=== PATIENT | male | born 1945 ===

== ENCOUNTER 2018-04-22 16:03 | Inpatient (IN) | payer MEDICARE, OTHER ==
--- NOTE | 2018-04-22 16:47 | C.PDOC ---
History Of Present Illness 72 y/o male with PMHx of HTN and diabetes presents to the ER, referred by PMD for evaluation of worsening chest pain and dyspnea on exertion. Patient complains of difficulty breathing that has gradually worsened over the last year , especially with exertion. He notes he occasionally has chest pain, but is asymptomatic at this time. Patient also reports gradually worsening pedal edema over the past 2-3 months, left greater than right. He complains of pain down the left lower leg/calf, ongoing for years, and notes the leg pain has not changed since the swelling began. Otherwise patient denies any dizziness, headache, nausea, vomiting, palpitations, weakness, or other associated symptoms. Denies taking daily blood thinners. Time Seen by Provider: 04/22/18 16:44 Chief Complaint (Nursing): Chest Pain History Per: Patient History/Exam Limitations: no limitations Onset/Duration Of Symptoms: Gradual Current Symptoms Are (Timing): Still Present Past Medical History Reviewed: Historical Data, Nursing Documentation, Vital Signs Vital Signs: Last Vital Signs Temp 97.7 F 04/24/18 04:00 Pulse 67 04/24/18 04:00 Resp 20 04/24/18 04:00 BP 147/82 04/24/18 11:24 Pulse Ox 100 04/24/18 04:00 - Medical History PMH: Back Problems (spinal stenosis), Diabetes, HTN, Hypercholesterolemia Denies: Chronic Kidney Disease Surgical History: Endoscopy - [facility] Procedures CLOSED ENDOSCOPIC BIOPSY OF LARGE INTESTINE (09/07/14) Family History: States: No Known Family Hx - Social History Hx Alcohol Use: No Hx Substance Use: No Review Of Systems Except As Marked, All Systems Reviewed And Found Negative. Constitutional: Negative for: Weakness Cardiovascular: Positive for: Chest Pain. Negative for: Palpitations Respiratory: Positive for: Shortness of Breath, SOB with Excertion Gastrointestinal: Negative for: Nausea, Vomiting Musculoskeletal: Positive for: Leg Pain, Other (bilateral feet swelling) Neurological: Negative for: Headache, Dizziness Physical Exam - Physical Exam Appears: Non-toxic, No Acute Distress Skin: Normal Color, Warm, No Rash Head: Atraumatic, Normacephalic Eye(s): bilateral: Normal Inspection, PERRL, EOMI Nose: Normal Oral Mucosa: Moist Neck: Normal ROM, Supple Chest: Symmetrical, No Deformity Cardiovascular: Rhythm Regular (and rate) Respiratory: Normal Breath Sounds, No Accessory Muscle Use, No Rales, No Rhonchi , No Wheezing, Other (NARD) Gastrointestinal/Abdominal: Soft, No Tenderness, No Distention Back: Normal Inspection Extremity: Normal ROM, No Calf Tenderness (or calf swelling), Capillary Refill ( less than 2 sec), No Deformity, Swelling (Pitting edema to bilateral feet, left > right) Pulses: Left Dorsalis Pedis: Normal, Right Dorsalis Pedis: Normal Neurological/Psych: Oriented x3, Normal Speech, Normal Cranial Nerves, Other ( No focal deficits) ED Course And Treatment - Laboratory Results Result Diagrams: 04/24/18 06:38 04/24/18 06:38 ECG: Interpreted By Me ECG Rhythm: Sinus Rhythm ECG Interpretation: Abnormal Interpretation Of ECG: TWI I, II, AVL, V5-6 Rate From EC O2 Sat by Pulse Oximetry: 98 Pulse Ox Interpretation: Normal - Other Rad CHEST X-RAY X-Ray: Viewed By Me, Read By Radiologist Interpretation: Accession No. : [id number]. Patient Name / ID : GAJRAJ ALEJO / [id number]. Exam Date : 04/22/2018 16:57:05 ( Approved ). Study Comment : Sex / Age : M / 72Y. Creator : Wilma Evans. Dictator : Nathaniel Huizar MD. Amusement Park Entertainer : Gas Turbine Assembler : Nathaniel Huizar MD. Approver2 : Report Date : 04/22/2018 17:10:43. My Comment : . Date of service: 04/22/2018. PROCEDURE: CHEST RADIOGRAPH, 1 VIEW. HISTORY: SOB. COMPARISON: Chest radiograph dated 03/31/2018. FINDINGS: LUNGS: Clear. PLEURA: No pneumothorax or pleural fluid seen. CARDIOVASCULAR: Atherosclerotic aortic calcifications. Cardiomediastinal silhouette within normal limits. OSSEOUS STRUCTURES: Unchanged. VISUALIZED UPPER ABDOMEN: Normal. OTHER FINDINGS: None. IMPRESSION: No active disease. Progress - Re-Evaluation Re-evaluation Note: 04/22/18 16:46 D/W DR CHANDLER. STATES EKG TWI ARE OLD. LOVENOX, ASA, WILL CONSULT. 04/22/18 17:12 D/W DR VIVAR WILL ADMIT. LABS PENDING. - Data Reviewed Data Reviewed: Lab, Diagnostic imaging, EKG, Old records Medical Decision Making Medical Decision Making: Initial Impression: Dyspnea on exertion Time: 16:45 Initial Plan: --EKG --Blood work --Chest x-ray --Aspirin 324 mg PO --Lasix 20 mg IVP --Lovenox 70 mg SC Case discussed with patient's primary doctor, Dr. Hilton, who accepts patient for admission. Disposition Counseled Patient/Family Regarding: Studies Performed, Diagnosis - Disposition Disposition: HOSPITALIZED Disposition Time: 17:05 Condition: STABLE - POA Present On Arrival: None - Clinical Impression Clinical Impression: Aortic stenosis, severe, Dyspnea on exertion, Diastolic heart failure - Scribe Statement The provider has reviewed the documentation as recorded by the Siobhan Salmon Provider Attestation: All medical record entries made by the Wilmanibnancy were at my direction and personally dictated by me. I have reviewed the chart and agree that the record accurately reflects my personal performance of the history, physical exam, medical decision making, and the department course for this patient. I have also personally directed, reviewed, and agree with the discharge instructions and disposition. Decision To Admit - Pt Status Changed To: Hospital Disposition Of: Inpatient - Admit Certification Admit to Inpatient:: After my assessment, the patient will require hospitalization for at least two midnights. This is because of the severity of symptoms shown, intensity of services needed, and/or the medical risk in this patient being treated as an outpatient. - InPatient: Physician Admission Certification: I certify that this patient requires 2 or more midnights of care for the following reason:: SEE NOTE - . Bed Request Type: Telemetry Admitting Physician: Edu Hilton Patient Diagnosis: Aortic stenosis, severe, Dyspnea on exertion, Diastolic heart failure
[2018-04-22] MEDS ORDERED: Enoxaparin 40 mg Syringe SC STA (16:58)
[2018-04-22 17:00] LABS: BASO % 0.6 % (0.0-2.0); EOS # 0.1 K/uL (0.0-0.7); EOS % 1.3 % (0.0-4.0); HEMOGLOBIN 13.1 g/dL (12.0-18.0); LYMPH # 1.3 K/uL (1.0-4.3); LYMPH % 26.1 % (20.0-40.0); MEAN CELL VOLUME 87.9 fL (80.0-94.0); MEAN CORPUSCULAR HEMOGLOBIN 29.7 pg (27.0-31.0); MEAN CORPUSCULAR HGB CONC 33.8 g/dL (33.0-37.0); MEAN PLATELET VOLUME 6.5 fL (7.2-11.7); MONO # 0.7 K/uL (0.0-0.8); MONO % 13.3 % (0.0-10.0); NEUT # 2.9 K/uL (1.8-7.0); NEUT % 58.7 % (50.0-75.0); RBC 4.4 Mil/uL (4.40-5.90); RED CELL DISTRIBUTION WIDTH 13.7 % (11.5-14.5)
[2018-04-22 17:09] LABS: INR 1.1; PROTHROMBIN TIME 11.5 SECONDS (9.7-12.2)
[2018-04-22 17:11] LABS: ALB/GLOB RATIO 1.7 (1.0-2.1); ALBUMIN 4.3 g/dL (3.5-5.0); ALT/SGPT 23 U/L (21-72); AST/SGOT 15 U/L (17-59); BLOOD UREA NITROGEN 13 mg/dL (9-20); CALCIUM 8.4 mg/dl (8.6-10.4); GFR AFRICAN-AMERICAN > 60; GFR NON-AFRICAN AMERICAN > 60
[2018-04-22 17:23] LABS: B-TYPE NATRIURETIC PEPTIDE 1310 pg/mL (0-900)
[2018-04-22] MEDS ORDERED: Enoxaparin 80 mg Syringe ONE (17:23)
--- NOTE | 2018-04-22 17:26 | RAD ---
Date of service: 04/22/2018 PROCEDURE: CHEST RADIOGRAPH, 1 VIEW HISTORY: SOB COMPARISON: Chest radiograph dated 03/31/2018. FINDINGS: LUNGS: Clear. PLEURA: No pneumothorax or pleural fluid seen. CARDIOVASCULAR: Atherosclerotic aortic calcifications. Cardiomediastinal silhouette within normal limits. OSSEOUS STRUCTURES: Unchanged. VISUALIZED UPPER ABDOMEN: Normal. OTHER FINDINGS: None. IMPRESSION: No active disease.
--- NOTE | 2018-04-22 21:41 | CP.PCM.HP ---
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 Patient also started having chest discomfort, shortness of breath, bilateral leg swelling worsening, associated with a severe systolic murmur, patient was immediately sent to the emergency room for worsening aortic stenosis and associated systemic symptoms. Patient also has a mild chest discomfort. He denies any nausea vomiting, no sweating noted Past medical history: Diabetes hypertension and hypercholesteremia spinal stenosis, diabetic neuropathy Allergy: No known drug allergy Surgical history none Allergy: No known drug allergy Personal history: Nonsmoker nonalcoholic. Patient currently lives with family members, functional capacity limited because of the ongoing leg pain Review of system: Noted from the chart. Mild chest discomfort, shortness of breath, leg swelling noted bilaterally. Walking difficulty noted, with the pain in the left leg. On examination: Vital signs stable. Patient has a severe systolic murmur. Radiating to the carotids. Regular heart sound. Bilateral good air entry noted. Abdomen soft. Pedal edema bilaterally noted Patient's labs reviewed in Nonspecific. Chest x-ray showing no evidence of any acute pulmonary infiltrate artery edema noted Assessment and recommendation: 78-year-old male with a history of diabetes hypertension and hypercholesteremia and severe spinal stenosis, aortic stenosis severe, admitted to the hospital with acute chest discomfort, decompensated mild systolic heart failure likely. In the setting of severe aortic stenosis patient is at high risk for cardiac arrest. We'll admit the patient. Diuretics. Cardiogenic on admission. Echo cardigan. Cardiac enzymes monitoring. Patient possibly need transfer aortic valve replacement. Patient in the past was refusing to surgery. Currently he is agreeing. Glucose control. DVT and GI prophylaxis, will follow-up the patient Present on Admission - Present on Admission Any Indicators Present on Admission: No History of DVT/PE: No History of Uncontrolled Diabetes: No Urinary Catheter: No Decubitus Ulcer Present: No Past Patient History - Past Medical History & Family History Past Medical History?: Yes - Past Social History Smoking Status: Never Smoked - CARDIAC Hx Hypercholesterolemia: Yes Hx Hypertension: Yes - PULMONARY Hx Respiratory Disorders: No - NEUROLOGICAL Hx Neurological Disorder: No - HEENT Hx HEENT Problems: Yes Hx Glaucoma: Yes - RENAL Hx Chronic Kidney Disease: No - ENDOCRINE/METABOLIC Hx Endocrine Disorders: Yes Hx Diabetes Mellitus Type 2: Yes - HEMATOLOGICAL/ONCOLOGICAL Hx Blood Disorders: No - INTEGUMENTARY Hx Dermatological Problems: No - MUSCULOSKELETAL/RHEUMATOLOGICAL Hx Musculoskeletal Disorders: Yes Hx Spinal Stenosis: Yes - GASTROINTESTINAL Hx Gastrointestinal Disorders: Yes Hx Colitis: Yes - GENITOURINARY/GYNECOLOGICAL Hx Genitourinary Disorders: No - PSYCHIATRIC Hx Substance Use: No - SURGICAL HISTORY Hx Surgeries: Yes - ANESTHESIA Hx Anesthesia: Yes Hx Anesthesia Reactions: No Hx Malignant Hyperthermia: No Meds Allergies/Adverse Reactions: Allergies Allergy/AdvReac Type Severity Reaction Status Date / Time No Known Allergies Allergy Verified 09/07/14 10:17 Results - Vital Signs Recent Vital Signs: Last Vital Signs Temp 98.4 F 04/22/18 18:36 Pulse 71 04/22/18 18:36 Resp 16 04/22/18 18:36 BP 155/85 H 04/22/18 18:36 Pulse Ox 97 04/22/18 18:36 - Labs Result Diagrams: 04/22/18 16:56 04/22/18 16:56 Labs: Laboratory Results - last 24 hr 04/22/18 04/22/18 04/22/18 16:56 16:56 16:56 WBC 5.0 RBC 4.40 Hgb 13.1 Hct 38.7 MCV 87.9 MCH 29.7 MCHC 33.8 RDW 13.7 Plt Count 263 MPV 6.5 L Neut % (Auto) 58.7 Lymph % (Auto) 26.1 [place] % (Auto) 13.3 H Eos % (Auto) 1.3 Baso % (Auto) 0.6 Neut # (Auto) 2.9 Lymph # (Auto) 1.3 [place] # (Auto) 0.7 Eos # (Auto) 0.1 Baso # (Auto) 0.0 PT 11.5 INR 1.1 APTT 30 Sodium 133 Potassium 4.3 Chloride 96 L Carbon Dioxide 26 Anion Gap 16 BUN 13 Creatinine 0.7 L Est GFR ( Amer) > 60 Est GFR (Non-Af Amer) > 60 Random Glucose 114 H Calcium 8.4 L Total Bilirubin 0.4 AST 15 L ALT 23 Alkaline Phosphatase 38 Troponin I < 0.0120 NT-Pro-B Natriuret Pep 1310 H Total Protein 6.8 Albumin 4.3 Globulin 2.5 Albumin/Globulin Ratio 1.7
[2018-04-22] MEDS: (Novolin R) Insulin Human Regular 100 units/ml vial SC SCH (23:33)
[2018-04-22] MEDS ORDERED: (Novolin R) Insulin Human Regular 100 units/ml vial ONE (23:35)
[2018-04-23] MEDS: (Novolin R) Insulin Human Regular 100 units/ml vial SC SCH ×4 (07:18→22:21)
[2018-04-23 08:59] LABS: BASO % 0.6 % (0.0-2.0); EOS # 0.1 K/uL (0.0-0.7); EOS % 1.6 % (0.0-4.0); HEMOGLOBIN 13.3 g/dL (12.0-18.0); LYMPH # 1.3 K/uL (1.0-4.3); LYMPH % 24.4 % (20.0-40.0); MEAN CELL VOLUME 88.4 fL (80.0-94.0); MEAN CORPUSCULAR HEMOGLOBIN 30.4 pg (27.0-31.0); MEAN CORPUSCULAR HGB CONC 34.4 g/dL (33.0-37.0); MEAN PLATELET VOLUME 7.1 fL (7.2-11.7); MONO # 0.7 K/uL (0.0-0.8); MONO % 13.4 % (0.0-10.0); NEUT # 3.2 K/uL (1.8-7.0); NRBC % 0.2 % (0.0-2.0); RBC 4.39 Mil/uL (4.40-5.90); RED CELL DISTRIBUTION WIDTH 13.8 % (11.5-14.5); WHITE BLOOD COUNT 5.4 K/uL (4.8-10.8)
[2018-04-23 09:13] LABS: ALB/GLOB RATIO 1.5 (1.0-2.1); ALT/SGPT 22 U/L (21-72); AST/SGOT 22 U/L (17-59); BLOOD UREA NITROGEN 14 mg/dL (9-20); CALCIUM 8.9 mg/dl (8.6-10.4); GFR AFRICAN-AMERICAN > 60; GFR NON-AFRICAN AMERICAN > 60; HDL CHOLESTEROL 46 mg/dL (30-70)
[2018-04-23 09:18] LABS: CK-MB 2.52 ng/mL (0.0-3.38)
[2018-04-23 09:23] LABS: LDL CHOLESTEROL 58 mg/dL (0-129)
[2018-04-23] MEDS ORDERED: PRAVASTATIN SODIUM 20 MG PO SCH (10:00)
--- NOTE | 2018-04-23 19:59 | CP.PCM.CON ---
History of Present Illness - History of Present Illness History of Present Illness: Patient with symptomatic severe For TAVR evaluation For Cath tomorrow to assess Caronaries Past Patient History - Past Medical History & Family History Past Medical History?: Yes - Past Social History Smoking Status: Never Smoked - CARDIAC Hx Hypercholesterolemia: Yes Hx Hypertension: Yes - PULMONARY Hx Respiratory Disorders: No - NEUROLOGICAL Hx Neurological Disorder: No - HEENT Hx HEENT Problems: Yes Hx Glaucoma: Yes - RENAL Hx Chronic Kidney Disease: No - ENDOCRINE/METABOLIC Hx Endocrine Disorders: Yes Hx Diabetes Mellitus Type 2: Yes - HEMATOLOGICAL/ONCOLOGICAL Hx Blood Disorders: No - INTEGUMENTARY Hx Dermatological Problems: No - MUSCULOSKELETAL/RHEUMATOLOGICAL Hx Falls: No - GASTROINTESTINAL Hx Gastrointestinal Disorders: Yes Hx Colitis: Yes - GENITOURINARY/GYNECOLOGICAL Hx Genitourinary Disorders: No - PSYCHIATRIC Hx Substance Use: No - SURGICAL HISTORY Hx Surgeries: Yes - ANESTHESIA Hx Anesthesia: Yes Hx Anesthesia Reactions: No Hx Malignant Hyperthermia: No Meds Allergies/Adverse Reactions: Allergies Allergy/AdvReac Type Severity Reaction Status Date / Time No Known Allergies Allergy Verified 09/07/14 10:17 - Medications Medications: Current Medications Famotidine (Pepcid) 20 mg PO DAILY [facility] Last Admin: 04/23/18 11:08 Dose: 20 mg Furosemide (Lasix) 20 mg PO DAILY [facility] Last Admin: 04/23/18 11:08 Dose: 20 mg Glimepiride (Amaryl) 4 mg PO ACB [facility] Last Admin: 04/23/18 07:59 Dose: 4 mg Heparin Sodium (Porcine) (Heparin) 5,000 units SC Q8 [facility] Last Admin: 04/23/18 05:42 Dose: 5,000 units Home Med (Patient's Own Medication) 1 tab PO HS [facility] Home Med (Patient's Own Drops) 1 drop OU BID [facility] Home Med (Patient's Own Drops) 1 drop OU BID [facility] Insulin Human Regular (Novolin R) 0 unit SC ACHS [facility] PRN Reason: Protocol Last Admin: 04/23/18 17:14 Dose: Not Given Losartan Potassium (Cozaar) 25 mg PO DAILY [facility] Last Admin: 04/23/18 11:08 Dose: 25 mg Results - Vital Signs Recent Vital Signs: Last Vital Signs Temp 97.6 F 04/23/18 15:31 Pulse 67 04/23/18 15:31 Resp 18 04/23/18 15:31 BP 125/77 04/23/18 15:31 Pulse Ox 98 04/23/18 15:31 - Labs Result Diagrams: 04/23/18 08:32 04/23/18 08:32 Labs: Laboratory Results - last 24 hr 04/22/18 04/23/18 04/23/18 23:28 06:17 08:32 WBC 5.4 RBC 4.39 L Hgb 13.3 Hct 38.8 MCV 88.4 MCH 30.4 MCHC 34.4 RDW 13.8 Plt Count 260 MPV 7.1 L Neut % (Auto) 60.0 Lymph % (Auto) 24.4 Bee % (Auto) 13.4 H Eos % (Auto) 1.6 Baso % (Auto) 0.6 Neut # (Auto) 3.2 Lymph # (Auto) 1.3 Bee # (Auto) 0.7 Eos # (Auto) 0.1 Baso # (Auto) 0.0 Sodium Potassium Chloride Carbon Dioxide Anion Gap BUN Creatinine Est GFR ( Amer) Est GFR (Non-Af Amer) POC Glucose (mg/dL) 180 H 113 H Random Glucose Hemoglobin A1c Calcium Total Bilirubin AST ALT Alkaline Phosphatase Total Creatine Kinase CK-MB (Mass) Troponin I Total Protein Albumin Globulin Albumin/Globulin Ratio Triglycerides Cholesterol LDL Cholesterol Direct HDL Cholesterol 04/23/18 04/23/18 04/23/18 08:32 08:32 11:44 WBC RBC Hgb Hct MCV MCH MCHC RDW Plt Count MPV Neut % (Auto) Lymph % (Auto) Bee % (Auto) Eos % (Auto) Baso % (Auto) Neut # (Auto) Lymph # (Auto) Bee # (Auto) Eos # (Auto) Baso # (Auto) Sodium 134 Potassium 4.1 Chloride 97 L Carbon Dioxide 25 Anion Gap 15 BUN 14 Creatinine 0.8 Est GFR ( Amer) > 60 Est GFR (Non-Af Amer) > 60 POC Glucose (mg/dL) 220 H Random Glucose 114 H Hemoglobin A1c 6.7 H Calcium 8.9 Total Bilirubin 0.6 AST 22 ALT 22 Alkaline Phosphatase 46 Total Creatine Kinase 100 CK-MB (Mass) 2.52 Troponin I 0.0200 Total Protein 6.6 Albumin 4.0 Globulin 2.6 Albumin/Globulin Ratio 1.5 Triglycerides 33 Cholesterol 117 LDL Cholesterol Direct 58 HDL Cholesterol 46 04/23/18 16:36 WBC RBC Hgb Hct MCV MCH MCHC RDW Plt Count MPV Neut % (Auto) Lymph % (Auto) Bee % (Auto) Eos % (Auto) Baso % (Auto) Neut # (Auto) Lymph # (Auto) Bee # (Auto) Eos # (Auto) Baso # (Auto) Sodium Potassium Chloride Carbon Dioxide Anion Gap BUN Creatinine Est GFR ( Amer) Est GFR (Non-Af Amer) POC Glucose (mg/dL) 115 H Random Glucose Hemoglobin A1c Calcium Total Bilirubin AST ALT Alkaline Phosphatase Total Creatine Kinase CK-MB (Mass) Troponin I Total Protein Albumin Globulin Albumin/Globulin Ratio Triglycerides Cholesterol LDL Cholesterol Direct HDL Cholesterol
[2018-04-23] MEDS: Patient's Own Drops OU SCH ×2 (20:15→20:24)
[2018-04-23] MEDS: PRAVASTATIN SODIUM 20 MG PO SCH (22:19)
--- NOTE | 2018-04-24 00:30 | CP.PCM.PN ---
Subjective - Date & Time of Evaluation Date of Evaluation: 04/23/18 Time of Evaluation: 16:45 - Subjective Subjective: Patient is currently having no chest pain. Comfortable. Leg swelling is better Vital signs stable. Chest good air entry bilaterally regular heart sound nontender abdomen edema 1+ Labs reviewed Spoke to the superintendent gas distribution. Patient will be getting the angiogram tomorrow. Discussed with family members. Objective - Vital Signs/Intake and Output Vital Signs (last 24 hours): Temp Pulse Resp BP Pulse Ox 97.6 F 67 18 125/77 98 04/23/18 15:31 04/23/18 15:31 04/23/18 15:31 04/23/18 15:31 04/23/18 15:31 Intake and Output: 04/23/18 04/24/18 18:59 06:59 Intake Total 350 450 Output Total 450 Balance -100 450 - Medications Medications: Current Medications Acetaminophen (Tylenol 325mg Tab) 650 mg PO Q6 PRN PRN Reason: Headache Last Admin: 04/23/18 22:18 Dose: 650 mg Famotidine (Pepcid) 20 mg PO DAILY [facility] Last Admin: 04/23/18 11:08 Dose: 20 mg Furosemide (Lasix) 20 mg PO DAILY [facility] Last Admin: 04/23/18 11:08 Dose: 20 mg Glimepiride (Amaryl) 4 mg PO ACB [facility] Last Admin: 04/23/18 07:59 Dose: 4 mg Heparin Sodium (Porcine) (Heparin) 5,000 units SC Q8 [facility] Last Admin: 04/23/18 22:00 Dose: 5,000 units Home Med (Patient's Own Medication) 1 tab PO HS [facility] Last Admin: 04/23/18 22:19 Dose: 1 tab Home Med (Patient's Own Drops) 1 drop OU BID [facility] Last Admin: 04/23/18 20:24 Dose: Not Given Home Med (Patient's Own Drops) 1 drop OU BID [facility] Last Admin: 04/23/18 20:15 Dose: 1 drop Insulin Human Regular (Novolin R) 0 unit SC ACHS [facility] PRN Reason: Protocol Last Admin: 04/23/18 22:21 Dose: Not Given Losartan Potassium (Cozaar) 25 mg PO DAILY [facility] Last Admin: 04/23/18 11:08 Dose: 25 mg - Labs Labs: 04/23/18 08:32 04/23/18 08:32 PT 11.5 SECONDS (9.7-12.2) 04/22/18 16:56 INR 1.1 04/22/18 16:56 APTT 30 SECONDS (21-34) 04/22/18 16:56
[2018-04-24 07:07] LABS: BLOOD UREA NITROGEN 14 mg/dL (9-20); CALCIUM 9.2 mg/dl (8.6-10.4); GFR AFRICAN-AMERICAN > 60; GFR NON-AFRICAN AMERICAN > 60
[2018-04-24 07:08] LABS: MEAN CELL VOLUME 88.2 fL (80.0-94.0); MEAN CORPUSCULAR HEMOGLOBIN 30.3 pg (27.0-31.0); MEAN CORPUSCULAR HGB CONC 34.4 g/dL (33.0-37.0); MEAN PLATELET VOLUME 7.1 fL (7.2-11.7); RBC 4.62 Mil/uL (4.40-5.90); RED CELL DISTRIBUTION WIDTH 14.1 % (11.5-14.5); WHITE BLOOD COUNT 4.3 K/uL (4.8-10.8)
[2018-04-24 07:19] LABS: INR 1.1; PROTHROMBIN TIME 11.6 SECONDS (9.7-12.2)
[2018-04-24] MEDS ORDERED: Lidocaine 2% MPF (5 ml) Inj ONE (07:47)
[2018-04-24] MEDS ORDERED: Midazolam 2 MG/2 ML VIAL ONE (07:47)
[2018-04-24] MEDS ORDERED: Iohexol 350mg/ml 100 ML ONE (09:03)
[2018-04-24] MEDS ORDERED: Sodium Chloride 0.9% 1,000 ML IV SCH (09:30)
[2018-04-24] MEDS: Patient's Own Drops OU SCH ×4 (11:23→22:26)
[2018-04-24] MEDS: (Novolin R) Insulin Human Regular 100 units/ml vial SC SCH ×4 (11:25→21:58)
--- NOTE | 2018-04-24 11:43 | CP.PCM.PN ---
Subjective - Date & Time of Evaluation Date of Evaluation: 04/24/18 Time of Evaluation: 11:41 - Subjective Subjective: Patient s/p cath 1. L Main: Patent 2. LAD/Diags: Patent 3. L Cx/OM: patent 4. RCA: Anomolous origin an patent Severe by ECHO Patient for TAVR eval as out patient D/C home in am Gentle hydration Continue ASA 81 daily OOB to ambulate after 2pm today Objective - Vital Signs/Intake and Output Vital Signs (last 24 hours): Temp Pulse Resp BP Pulse Ox 97.7 F 67 20 147/82 100 04/24/18 04:00 04/24/18 04:00 04/24/18 04:00 04/24/18 11:24 04/24/18 04:00 Intake and Output: 04/24/18 04/24/18 06:59 18:59 Intake Total 450 Balance 450 - Medications Medications: Current Medications Acetaminophen (Tylenol 325mg Tab) 650 mg PO Q6 PRN PRN Reason: Headache Last Admin: 04/23/18 22:18 Dose: 650 mg Famotidine (Pepcid) 20 mg PO DAILY [facility] Last Admin: 04/24/18 11:24 Dose: 20 mg Furosemide (Lasix) 20 mg PO DAILY [facility] Last Admin: 04/24/18 11:24 Dose: 20 mg Glimepiride (Amaryl) 4 mg PO ACB [facility] Last Admin: 04/24/18 11:32 Dose: 4 mg Heparin Sodium (Porcine) (Heparin) 5,000 units SC Q8 [facility] Last Admin: 04/24/18 07:00 Dose: Not Given Home Med (Patient's Own Medication) 1 tab PO HS [facility] Last Admin: 04/23/18 22:19 Dose: 1 tab Home Med (Patient's Own Drops) 1 drop OU BID [facility] Last Admin: 04/23/18 20:24 Dose: Not Given Home Med (Patient's Own Drops) 1 drop OU BID [facility] Last Admin: 04/24/18 11:23 Dose: 1 drop Sodium Chloride (Sodium Chloride 0.9%) 1,000 mls @ 50 mls/hr IV .Q20H [facility] Stop: 04/24/18 19:31 Last Admin: 04/24/18 11:29 Dose: 50 mls/hr Insulin Human Regular (Novolin R) 0 unit SC ACHS [facility] PRN Reason: Protocol Last Admin: 04/24/18 11:25 Dose: Not Given Losartan Potassium (Cozaar) 25 mg PO DAILY [facility] Last Admin: 04/24/18 11:24 Dose: 25 mg - Labs Labs: 04/24/18 06:38 04/24/18 06:38 PT 11.6 SECONDS (9.7-12.2) 04/24/18 06:38 INR 1.1 04/24/18 06:38 APTT 30 SECONDS (21-34) 04/22/18 16:56
--- NOTE | 2018-04-24 12:12 | CARD ---
APPROVED REPORT Date of service: 04/22/2018 EKG Measurement Heart [id number] <Conclusion> Normal sinus rhythm Possible Left atrial enlargement Left ventricular hypertrophy with repolarization abnormality Abnormal ECG
[2018-04-24] MEDS: PRAVASTATIN SODIUM 20 MG PO SCH (22:26)
[2018-04-25 01:39] VITALS: RESP 20
[2018-04-25] MEDS: (Novolin R) Insulin Human Regular 100 units/ml vial SC SCH ×3 (09:19→16:59)
[2018-04-25] MEDS: Patient's Own Drops OU SCH (09:20)
[2018-04-25 14:18] LABS: BLOOD UREA NITROGEN 16 mg/dL (9-20); CALCIUM 8.9 mg/dl (8.6-10.4); GFR AFRICAN-AMERICAN > 60; GFR NON-AFRICAN AMERICAN > 60
[2018-04-25 15:34] VITALS: BP 155/96; TEMP 97.7; O2SAT 96
[2018-04-25 18:19] VITALS: PULSE 64
--- NOTE | 2018-04-26 15:30 | CARD ---
APPROVED REPORT Date of service: 04/23/2018 EXAM: Two-dimensional and M-mode echocardiogram with Doppler and color Doppler. INDICATION Aortic Valve Disease Dyspnea RISK FACTORS Hyperlipidemia Diabetes 2D DIMENSIONS LVOT Diameter2.0 (1.8-2.4cm) M-Mode DIMENSIONS RVDd3.09 (2.1-3.2cm)Left Atrium (MM)4.23 (2.5-4.0cm) IVSd1.67 (0.7-1.1cm)Aortic Root2.74 (2.2-3.7cm) LVDd3.37 (4.0-5.6cm)Aortic Cusp Exc.0.62 (1.5-2.0cm) PWd1.60 (0.7-1.1cm)FS (%) 52 % LVDs1.63 (2.0-3.8cm)LVEF (%)84 (>50%) Aortic Valve AoV Peak Wvtwzzyh406.6cm/sAoV ROG005.7cmAO Peak GR.85mmHg LVOT Peak Duppfbar95.6cm/sLVOT VTI21.78cmAO Mean GR.49mmHg MICAELA (VMAX)0.94lw1FFK (VTI)0.65cm2 Mitral Valve MV E Wppryrws97.6cm/sMV A Hfkkojym33.1cm/sE/A ratio1.3 TDI E/Lateral E'0.0E/Medial E'0.0 Tricuspid Valve TR Peak Rjlwrydc219uq/sTR Peak Gr.77gcObWZTU89jcEb LEFT VENTRICLE The left ventricle is normal size. There is severe concentric left ventricular hypertrophy. The Ejection Fraction is >70%. There is normal LV segmental wall motion. Transmitral Doppler flow pattern is Grade II-pseudonormal filling dynamics. RIGHT VENTRICLE The right ventricle is normal size. poss rvh. The right ventricular systolic function is normal. ATRIA The left atrium is mildly dilated. The right atrium size is normal. There is a small secundum type atrial septal defect. AORTIC VALVE The aortic valve is severely calcified.?trileaflet. There is mild aortic regurgitation. There is severe valvular aortic stenosis. Calculated aortic valve area is 0.6 cm2 with maximum pressure gradient of 65 mmHg and mean pressure gradient of 54 mmHg. MITRAL VALVE Mitral annular calcification is moderate. Mitral regurgitation is mild. TRICUSPID VALVE The tricuspid valve is normal in structure. There is trace tricuspid regurgitation. PULMONIC VALVE The pulmonary valve is normal in structure. GREAT VESSELS The aortic root is normal size. The aortic root displays moderate sclerocalcific changes of the aortic root. The IVC is normal in size and collapses >50% with inspiration. PERICARDIAL EFFUSION There is no pericardial effusion. <Conclusion> The left ventricle is normal size. There is severe concentric left ventricular hypertrophy. The Ejection Fraction is >70%. Transmitral Doppler flow pattern is Grade II-pseudonormal filling dynamics. poss rvh. The left atrium is mildly dilated. There is a small secundum type atrial septal defect. Mitral annular calcification is moderate. Mitral regurgitation is mild. The aortic root is normal size. The aortic root displays moderate sclerocalcific changes of the aortic root. There is no pericardial effusion. The aortic valve is severely calcified.?trileaflet. There is mild aortic regurgitation. There is severe valvular aortic stenosis. Calculated aortic valve area is 0.6 cm2 with maximum pressure gradient of 65 mmHg and mean pressure gradient of 54 mmHg.
--- NOTE | 2018-04-26 16:07 | CARDCATH ---
PROCEDURE DATE: 04/24/2018 PROCEDURES: 1. Coronary angiogram. 2. Aortic root angiogram. CLINICAL INDICATIONS: 1. Dyspnea on minimal exertion. 2. Severe symptomatic aortic stenosis. 3. Hypertension. 4. Hyperlipidemia. REFERRING PHYSICIAN: Dr. Edu Hilton. PERFORMING PHYSICIAN: Dr. Meño Ramirez. BRIEF CLINICAL HISTORY: Mr. Luisa Mendez is a 72-year-old gentleman with known history of aortic stenosis with symptoms of dyspnea with minimal exertion. The patient was evaluated in my office for TAVR in the past. However, in the past, the patient refused to undergo any procedure, and subsequently returned to my office because symptoms were getting worse. Then, subsequently because of the symptoms, the patient was admitted to [facility] for further evaluation. After informed consent, the patient was prepped and draped in the usual sterile fashion. Lidocaine 2% was given in the right groin for local anesthesia. Using micropuncture technique, a 6-Somali sheath was introduced into right common femoral artery. A JL4 6-Somali diagnostic catheter engaged into left main coronary artery. Contrast was injected and left coronary angiogram was done. Then, right coronary artery was engaged using a JL4 6-Somali diagnostic catheter. Contrast injected and right coronary angiogram was done. Radiological supervision and interpretation of the above images were performed. FINDINGS: 1. Left main coronary artery is patent. 2. LAD is patent; however, small diagonal branches have osteal stenotic lesions. 3. Left circumflex and obtuse marginal branches are patent. 4. Right coronary artery is dominant and patent. IMPRESSION: 1. Nonobstructive coronaries as described above. 2. The patient has a severe aortic stenosis by echocardiogram. Peak gradient of 85 mmHg, mean gradient of 49 mmHg, calculated aortic valve area by echocardiogram is 0.65 sq cm. RECOMMENDATIONS: The patient will be sent for transcatheter aortic valve replacement evaluation. Meño Ramierz MD
--- NOTE | 2018-04-26 16:45 | CP.PCM.DIS ---
Provider - Provider Date of Admission: 04/22/18 17:04 Attending physician: Edu Hilton MD Time Spent in preparation of Discharge (in minutes): 45 Hospital Course - Lab Results Lab Results: Most Recent Lab Values WBC 4.3 K/uL (4.8-10.8) L 04/24/18 06:38 RBC 4.62 Mil/uL (4.40-5.90) 04/24/18 06:38 Hgb 14.0 g/dL (12.0-18.0) 04/24/18 06:38 Hct 40.8 % (35.0-51.0) 04/24/18 06:38 MCV 88.2 fL (80.0-94.0) 04/24/18 06:38 MCH 30.3 pg (27.0-31.0) 04/24/18 06:38 MCHC 34.4 g/dL (33.0-37.0) 04/24/18 06:38 RDW 14.1 % (11.5-14.5) 04/24/18 06:38 Plt Count 256 K/uL (130-400) 04/24/18 06:38 MPV 7.1 fL (7.2-11.7) L 04/24/18 06:38 Neut % (Auto) 60.0 % (50.0-75.0) 04/23/18 08:32 Lymph % (Auto) 24.4 % (20.0-40.0) 04/23/18 08:32 [place] % (Auto) 13.4 % (0.0-10.0) H 04/23/18 08:32 Eos % (Auto) 1.6 % (0.0-4.0) 04/23/18 08:32 Baso % (Auto) 0.6 % (0.0-2.0) 04/23/18 08:32 Neut # (Auto) 3.2 K/uL (1.8-7.0) 04/23/18 08:32 Lymph # (Auto) 1.3 K/uL (1.0-4.3) 04/23/18 08:32 [place] # (Auto) 0.7 K/uL (0.0-0.8) 04/23/18 08:32 Eos # (Auto) 0.1 K/uL (0.0-0.7) 04/23/18 08:32 Baso # (Auto) 0.0 K/uL (0.0-0.2) 04/23/18 08:32 PT 11.6 SECONDS (9.7-12.2) 04/24/18 06:38 INR 1.1 04/24/18 06:38 APTT 30 SECONDS (21-34) 04/22/18 16:56 Sodium 132 mmol/L (132-148) 04/25/18 13:54 Potassium 4.0 mmol/L (3.6-5.2) 04/25/18 13:54 Chloride 95 mmol/L (98-107) L 04/25/18 13:54 Carbon Dioxide 25 mmol/L (22-30) 04/25/18 13:54 Anion Gap 16 (10-20) 04/25/18 13:54 BUN 16 mg/dL (9-20) 04/25/18 13:54 Creatinine 0.9 mg/dL (0.8-1.5) 04/25/18 13:54 Est GFR ( Amer) > 60 04/25/18 13:54 Est GFR (Non-Af Amer) > 60 04/25/18 13:54 POC Glucose (mg/dL) 274 mg/dL (65-110) H 04/25/18 16:30 Random Glucose 216 mg/dL (75-110) H 04/25/18 13:54 Hemoglobin A1c 6.7 % (4.2-6.5) H 04/23/18 08:32 Calcium 8.9 mg/dl (8.6-10.4) 04/25/18 13:54 Total Bilirubin 0.6 mg/dL (0.2-1.3) 04/23/18 08:32 AST 22 U/L (17-59) 04/23/18 08:32 ALT 22 U/L (21-72) 04/23/18 08:32 Alkaline Phosphatase 46 U/L (38-126) 04/23/18 08:32 Total Creatine Kinase 100 U/L (55-170) 04/23/18 08:32 CK-MB (Mass) 2.52 ng/mL (0.0-3.38) 04/23/18 08:32 Troponin I 0.0200 ng/mL (0.00-0.120) 04/23/18 08:32 NT-Pro-B Natriuret Pep 1310 pg/mL (0-900) H 04/22/18 16:56 Total Protein 6.6 g/dL (6.3-8.3) 04/23/18 08:32 Albumin 4.0 g/dL (3.5-5.0) 04/23/18 08:32 Globulin 2.6 gm/dL (2.2-3.9) 04/23/18 08:32 Albumin/Globulin Ratio 1.5 (1.0-2.1) 04/23/18 08:32 Triglycerides 33 mg/dL (0-149) 04/23/18 08:32 Cholesterol 117 mg/dL (0-199) 04/23/18 08:32 LDL Cholesterol Direct 58 mg/dL (0-129) 04/23/18 08:32 HDL Cholesterol 46 mg/dL (30-70) 04/23/18 08:32 - Hospital Course Hospital Course: Chief complain: Leg swelling HPI: 78-year-old male with a history of hypertension, diabetes, hypercholesteremia, severe spinal stenosis, also aortic stenosis, went to see the staffing recruiter today , for bilateral leg swelling. Patient also started having chest discomfort, shortness of breath, bilateral leg swelling worsening, associated with a severe systolic murmur, patient was immediately sent to the emergency room for worsening aortic stenosis and associated systemic symptoms. Patient also has a mild chest discomfort. He denies any nausea vomiting, no sweating noted Past medical history: Diabetes hypertension and hypercholesteremia spinal stenosis, diabetic neuropathy Allergy: No known drug allergy Surgical history none Allergy: No known drug allergy Personal history: Nonsmoker nonalcoholic. Patient currently lives with family members, functional capacity limited because of the ongoing leg pain Review of system: Noted from the chart. Mild chest discomfort, shortness of breath, leg swelling noted bilaterally. Walking difficulty noted, with the pain in the left leg. On examination: Vital signs stable. Patient has a severe systolic murmur. Radiating to the carotids. Regular heart sound. Bilateral good air entry noted. Abdomen soft. Pedal edema bilaterally noted Patient's labs reviewed in Nonspecific. Chest x-ray showing no evidence of any acute pulmonary infiltrate artery edema noted Assessment and recommendation: 78-year-old male with a history of diabetes hypertension and hypercholesteremia and severe spinal stenosis, aortic stenosis severe, admitted to the hospital with acute chest discomfort, decompensated mild systolic heart failure likely. In the setting of severe aortic stenosis patient is at high risk for cardiac arrest. We'll admit the patient. Diuretics. Cardiogenic on admission. Echo cardigan. Cardiac enzymes monitoring. Patient possibly need transfer aortic valve replacement. Patient in the past was refusing to surgery. Currently he is agreeing. Glucose control Course in the Hospital: Patient was admitted to the hospital with the diagnosis of possible decompensated heart failure. Diuretics were given. Placed on oxygen. Cartilage evolution was called in. Leg swelling improved Echocardiogram showing evidence of normal ejection fraction. Severe aortic stenosis noted. Patient underwent angiogram. Showing normal coronaries. But having severe aortic stenosis, most severe critical aortic stenosis noted. Patient also has a elevated proBNP a and leg swelling, associated possible heart failure in the setting of aortic stenosis. Final diagnoses severe aortic stenosis with a diastolic heart failure, most likely acute. Improving Currently patient is on medications. Aspirin, glucose control. Reviewed Patient will be discharged home. He will follow up as an outpatient with [facility] thoracic [facility], cardiology for possible aortic stenosis operation including transaortic valvular replacement. Family agreeing. Medications reviewed Will follow the patient Discharge Plan - Follow Up Plan Condition: STABLE Disposition: HOME/ ROUTINE Instructions: Heart Healthy Diet, Aortic Stenosis, Adult (DC) Referrals: Meño Ramirez MD [Staff Provider] - Edu Hilton MD [Staff Provider] -
--- NOTE | 2018-04-26 16:45 | CP.PCM.PN ---
Subjective - Date & Time of Evaluation Date of Evaluation: 04/24/18 Time of Evaluation: 16:45 - Subjective Subjective: Patient had angiogram. Showing evidence of severe aortic stenosis. Normal coronaries. Patient currently stable. No leg swelling. The right groin stable. No chest pain or shortness of breath Labs reviewed We'll continue to monitor Objective - Vital Signs/Intake and Output Vital Signs (last 24 hours): Temp Pulse Resp BP Pulse Ox 97.7 F 64 20 155/96 H 96 04/25/18 15:01 04/25/18 16:00 04/25/18 15:01 04/25/18 15:01 04/25/18 15:01 - Labs Labs: 04/24/18 06:38 04/25/18 13:54 PT 11.6 SECONDS (9.7-12.2) 04/24/18 06:38 INR 1.1 04/24/18 06:38 APTT 30 SECONDS (21-34) 04/22/18 16:56
== END 2018-04-25 17:50 | disposition home or self-care (01) | DRG 286 ==
LOC: C.ER 16:03 → C.9E 17:04 → C.6T 04-23 01:46
PROVIDERS: ADMIT Internal Medicine; ATTEND Internal Medicine
PROC: B2111ZZ Fluoroscopy of Multiple Coronary Arteries using Low Osmolar Contrast (ICD-10-PCS; principal; 2018-04-24)
PROC: B3101ZZ Fluoroscopy of Thoracic Aorta using Low Osmolar Contrast (ICD-10-PCS; 2018-04-24)
DX: I35.0 Nonrheumatic aortic (valve) stenosis (principal); I50.33 Acute on chronic diastolic (congestive) heart failure; I11.0 Hypertensive heart disease with heart failure; E11.40 Type 2 diabetes mellitus with diabetic neuropathy, unspecified; E78.5 Hyperlipidemia, unspecified; H40.9 Unspecified glaucoma; Z79.82 Long term (current) use of aspirin

== ENCOUNTER 2018-05-10 10:14 | Emergency (ER) | payer MEDICARE, OTHER ==
[2018-05-10 10:26] VITALS: BP 140/82; PULSE 96; TEMP 98.3; O2SAT 97
--- NOTE | 2018-05-10 10:58 | C.PDOC ---
History Of Present Illness 72-year-old male, presents to the emergency department with complaints of increasing dryness to bilateral palms. Patient states his skin is peeling, associated with soreness and irritation. He denies an known allergen/chemical exposure, nausea/vomiting, fever, shortness of breath, or any other associated symptoms. No other complaints at this time. Time Seen by Provider: 05/10/18 10:43 Chief Complaint (Nursing): Abnormal Skin Integrity History Per: Patient History/Exam Limitations: no limitations Current Symptoms Are (Timing): Still Present Past Medical History Reviewed: Historical Data, Nursing Documentation, Vital Signs Vital Signs: Last Vital Signs Temp 98.3 F 05/10/18 10:22 Pulse 96 H 05/10/18 10:22 Resp 18 05/10/18 11:11 BP 140/82 05/10/18 10:22 Pulse Ox 97 05/10/18 15:14 - Medical History PMH: Back Problems (spinal stenosis), Diabetes, HTN, Hypercholesterolemia Surgical History: Endoscopy - [facility] Procedures CLOSED ENDOSCOPIC BIOPSY OF LARGE INTESTINE (09/07/14) FLUOROSCOPY OF MULT COR ART USING L OSM CONTRAST (04/22/18) FLUOROSCOPY OF THORACIC AORTA USING LOW OSMOLAR CONTRAST (04/22/18) Family History: States: No Known Family Hx - Social History Hx Alcohol Use: No Hx Substance Use: No - Immunization History Hx Tetanus Toxoid Vaccination: (unk) Hx Influenza Vaccination: Yes (2016) Hx Pneumococcal Vaccination: Yes Physical Exam - Physical Exam Appears: Non-toxic, No Acute Distress Skin: Warm, Dry, No Rash, Other (B/L palsm with scaling and dry skin. No infectious process) Head: Atraumatic, Normacephalic Eye(s): bilateral: Normal Inspection Nose: Normal Oral Mucosa: Moist Lips: Normal Appearing Neck: Normal ROM Chest: Symmetrical Extremity: Normal ROM, No Deformity Neurological/Psych: Oriented x3, Normal Speech ED Course And Treatment O2 Sat by Pulse Oximetry: 97 (RA) Pulse Ox Interpretation: Normal Disposition - Disposition Disposition: HOME/ ROUTINE Disposition Time: 11:00 Condition: STABLE Additional Instructions: Follow up with PMD and Die Designer Apprentice within 1-2 days. Return to ED if feel worse. Prescriptions: Ammonium Lactate 12% [Amlactin] 1 appl TP BID #1 bottle Clobetasol 0.05% [Temovate CREAM] 1 applic TOP BID #60 g Instructions: Eczema (Atopic Dermatitis) Forms: [facility] (Iranian) - Clinical Impression Clinical Impression: Eczema - Scribe Statement The provider has reviewed the documentation as recorded by the Scribe (Samuel Heredia) All medical record entries made by the Scribe were at my direction and personally dictated by me. I have reviewed the chart and agree that the record accurately reflects my personal performance of the history, physical exam, medical decision making, and the department course for this patient. I have also personally directed, reviewed, and agree with the discharge instructions and disposition.
[2018-05-10 11:12] VITALS: RESP 18
== END 2018-05-10 11:12 | disposition home or self-care (01) ==
LOC: C.ER 10:14
DX: L30.9 Dermatitis, unspecified (principal)

== ENCOUNTER 2019-01-22 13:49 | Outpatient (CLI) | payer MEDICARE, OTHER | END 2019-01-22 13:50 | disposition home or self-care (01) | LOC: C.RADIC 13:49 ==